=== PATIENT | female | born 1960 | race Two or more races ===

== ENCOUNTER 2020-09-29 11:14 | Outpatient (CLI) | payer OTHER | END 2020-09-29 11:31 | disposition home or self-care (01) | LOC: TOM 11:14 | PROVIDERS: ATTEND Surgery | DX: N82.3 Fistula of vagina to large intestine (principal); K57.30 Diverticulosis of large intestine without perforation or abscess without bleeding ==

== ENCOUNTER 2021-04-12 07:07 | Day surgery (SDC) | payer OTHER ==
[~2021-04-12 07:07] MED LIST: BOTOX100 UNIT IJ; MOTRIN IB200 M1 PO; PRILOSEC OTC20 MG PO; ZANAFLEX4 MG PO
== END 2021-04-12 18:00 | disposition home or self-care (01) ==
LOC: CIR.AMB 07:07
PROVIDERS: ATTEND Obstetrics & Gynecology Gynecologic Oncology
DX: N83.291 Other ovarian cyst, right side (principal); N83.292 Other ovarian cyst, left side; Z20.822 Contact with and (suspected) exposure to COVID-19